=== PATIENT | male | born 1945 | race Caucasian/White ===

== ENCOUNTER 2019-11-27 17:10 | Emergency (ER) | payer MEDICARE, SELFPAY ==
[2019-11-27 18:32] VITALS: BP 136/75; PULSE 100; RESP 16; TEMP 36.5; O2SAT 95
--- NOTE | 2019-11-27 19:12 | ED.GENADULT ---
HPI - General Adult General Chief complaint: Wound/Laceration Stated complaint: Possible spider bite inner right thigh Time Seen by Provider: 11/27/19 19:12 Source: patient Mode of arrival: ambulatory Limitations: no limitations History of Present Illness HPI narrative: 74-year-old male patient presents to the [facility] with complaints of wound to the right inner thigh for the past week. Patient states he thinks he might of been bitten by something in bed one night. Patient states he did feel a sting to that area when night while he was lying in bed. Patient states he has been cleansing it with hydrogen peroxide. Patient states he does have a history of cancer and is immune suppressed. Patient denies any fevers that he is aware of. Related Data Allergies Allergy/AdvReac Type Severity Reaction Status Date / Time No Known Allergies Allergy Verified 11/27/19 18:42 Review of Systems Review of Systems: Narrative: CONSTITUTIONAL: Denies fever, chills, or sweats. EYES: Denies visual changes, redness, or discharge. ENT: Denies rhinorrhea, congestion, sore throat, or otalgia. CARDIOVASCULAR: Denies chest pain, palpitations, or edema. RESPIRATORY: Denies cough or dyspnea. GASTROINTESTINAL: Denies abdominal pain, nausea, vomiting, or diarrhea. GENITOURINARY: Denies dysuria or hematuria. SKIN: Denies rash or itching. Positive wound to right inner thigh x1 week MUSCULOSKELETAL: Denies back pain, joint pain, or myalgia. NEUROLOGIC: Denies headache, numbness, or weakness. PSYCHIATRIC: Denies anxiety or depression. [facility] Past Medical History Medical History Cataracts, bilateral Lymphoma Mitral valve prolapse Nasal fracture Repair Surgical History Surgical History H/O hand surgery Rt thumb repair Family History Family History Father Patient's father is Acute myocardial infarction, Onset Age: 75 Social History Social History Smoking status: Unknown if ever smoked Comments At the time of my signature I agree with nursing past medical history, surgical, social, and family history. There is no relevant family history pertinent to the presenting complaint. Exam Narrative: Exam Narrative: GENERAL: Well-appearing, well-nourished, and in no acute distress. HEAD: Normocephalic, atraumatic. EYES: PERRLA and EOMI. ENT: Nares clear, no rhinorrhea or epistaxis. Mucous membranes moist. NECK: Supple. No lymphadenopathy CHEST: Clear to auscultation. No respiratory distress. HEART: Regular rate and rhythm. No murmur heard. Normal peripheral pulses. ABDOMEN: Soft, nontender, nondistended, normal active bowel sounds. EXTREMITIES: Normal range of motion. No edema. SKIN: Warm, dry, no rash. Patient has approximately 2 cm round wound noted to the right inner thigh. It is slightly warm to the touch. There is no obvious drainable area. Does have slight tenderness to the touch. NEURO: No focal deficits. Alert and oriented x3. Course Vital Signs Vital signs: Vital Signs Temperature 36.5 C 11/27/19 18:32 Pulse Rate 100 11/27/19 18:32 Respiratory Rate 16 11/27/19 18:32 Blood Pressure 136/75 11/27/19 18:32 Pulse Oximetry 95 11/27/19 18:32 Temperature 36.5 C 11/27/19 18:32 Pulse Rate 100 11/27/19 18:32 Respiratory Rate 16 11/27/19 18:32 Blood Pressure 136/75 11/27/19 18:32 Pulse Oximetry 95 11/27/19 18:32 Vital signs reviewed. Medical Decision Making Differential Diagnosis Differential Diagnosis: Differential diagnosis: Abscess, cellulitis, hidradenitis, laceration, puncture wound. Discussed with patient that we will go ahead and discharge him home with an oral antibiotic as well as a topical antibiotic. Discussed with patient he can use warm compresses to hel
== END 2019-11-27 19:28 | disposition home or self-care (01) ==
PROVIDERS: Emergency Provider Nurse Practitioner Family; PCP Emergency Medicine
DX: L03.115 Cellulitis of right lower limb (principal); H26.9 Unspecified cataract; I34.1 Nonrheumatic mitral (valve) prolapse; Z85.72 Personal history of non-Hodgkin lymphomas; Z94.84 Stem cells transplant status
CPT/HCPCS: 99213; G0463

== ENCOUNTER 2020-07-04 13:42 | Emergency (ER) | payer MEDICARE, SELFPAY ==
[2020-07-04 13:50] VITALS: BP 103/70; PULSE 86; RESP 22; TEMP 36.8; O2SAT 96
--- NOTE | 2020-07-04 15:57 | PC.NURSE ---
Patient was called to room at 1545. There was no answer, patient not in the ED waiting room. I went outside and called for the patient as well. Patient was not there. Patient was called for room a second time at 1554 and there was no answer. Patient not in the ED waiting room or outside at this time.
== END 2020-07-04 15:57 | disposition left against medical advice (07) ==
LOC: ANHED 16:44
PROVIDERS: PCP Emergency Medicine
DX: R05 Cough (principal)
CPT/HCPCS: 99199